=== PATIENT | male | born 1975 | race Caucasian/White ===

== ENCOUNTER 2022-12-19 02:51 | Inpatient (IN) | payer BC, SELFPAY ==
[2022-12-19] VITALS (23 sets, daily range): BP systolic 119–164; BP diastolic 59–97; PULSE 55–80; RESP 18–22; TEMP 36.4–37; O2SAT 95–99; BMI 46.7; BMI 48.2
--- NOTE | 2022-12-19 03:06 | XR_ITS ---
PROCEDURE INFORMATION: Exam: XR Chest Exam date and time: 12/19/2022 3:42 AM Age: 47 years old Clinical indication: Shortness of breath TECHNIQUE: Imaging protocol: Radiologic exam of the chest. Views: 1 view. COMPARISON: No relevant prior studies available. FINDINGS: Lungs: Pulmonary vascular prominence. Pleural spaces: Unremarkable. No pleural effusion. No pneumothorax. Heart/Mediastinum: Cardiomegaly. Bones/joints: Unremarkable. IMPRESSION: Cardiomegaly with pulmonary vascular prominence, underlying volume overload suspected.
--- NOTE | 2022-12-19 03:13 | EXP.HP ---
History of Present Illness *Admission Date: 12/19/22 *Reason for visit:: NSTEMI *History of present illness: This is a 47-year-old male with past medical history of coronary artery disease status post 10 stents with most recent being approximately 1 year ago, hypertension, hyperlipidemia who presented to [place] for complaints of midsternal chest pain. He reports midsternal chest pain started around 8 PM and radiated to his neck. He also endorses diaphoresis associated with this chest pain. He does report an element of shortness of breath over the past week that was intermittent. He denies cough or fever. He denies palpitations or lightheadedness. He does endorse to 1 pack a day smoking, denies alcohol usage. Emergency department outside hospital significant for chest pain relieved by nitroglycerin. Initial high-sensitivity troponin of 200 with increased to 1000. He was medicated with aspirin, heparin and nitroglycerin. Dr. Castillo was consulted for cardiology and he is now admitted here for further evaluation and management. At the time of admission he is chest pain-free and reports feeling improved. [facility] Disclaimer: The information contained in this section may have been updated after the patient was seen, as this information can be updated by other users. Medical History (Updated 12/19/22 @ 03:17 by KANDI Galaviz) Congestive heart failure Hemorrhoid History of gastroesophageal reflux (GERD) History of left heart catheterization (LHC) Hyperlipidemia Hypertension Skin cancer Sleep apnea Surgical History (Updated 12/19/22 @ 03:14 by Elke Garcia RN) History of angioplasty History of right heart catheterization (RHC) Family History (Updated 12/19/22 @ 03:15 by Elke Garcia RN) Other Family history of hyperlipidemia Family history of hypertension Family history of myocardial infarction Social History (Updated 12/19/22 @ 03:16 by Elke Garcia RN) Smoking Status: Current every day smoker alcohol intake: never current occupational status: employed Travel in the last 8 weeks: None Review of Systems Review of Systems Review of systems:: pertinent systems reviewed and negative unless documented below *Cardiovascular Cardiovascular: Reports chest pain and Reports chest pain with activity Meds Home Medications and Allergies Home Medications Medication Instructions Recorded Confirmed Type carvedilol 25 mg tablet 25 mg PO BID Hypertension 12/19/22 12/19/22 History furosemide 40 mg tablet 40 mg PO DAILY Heart failure 12/19/22 12/19/22 History lisinopril 20 mg tablet 20 mg PO BID Hypertension 12/19/22 12/19/22 History sertraline 50 mg tablet 50 mg PO DAILY Anxiety 12/19/22 12/19/22 History New Prescriptions to Start Prescriptions: Allergies Allergy/AdvReac Type Severity Reaction Status Date / Time No Known Drug Allergies Allergy Verified 12/19/22 03:50 Exam Data for Last 24 hours I & O for Last 24 hours: Intake & Output 12/16/22 12/17/22 12/18/22 12/19/22 23:59 23:59 23:59 23:59 Weight 151.95 kg Constitutional Constitutional: no acute distress *Routine HEENT Exam Head: Present normocephalic Eye: Present EOMI and PERRL ENT: Present mucous membranes moist *Routine Neck Exam Neck: Present supple; Absent lymphadenopathy *Routine Respiratory Exam Respiratory: Present CTA bilaterally *Routine Cardiovascular Exam Cardiovascular: Present RRR *Routine Abdominal Exam Abdominal: Present soft and normoactive bowel sounds; Absent tenderness *Routine Rectal Exam Rectal:: deferred *Routine Genitalia Exam Genitalia:: deferred *Routine Extremities Exam Extremities: Absent cyanosis, clubbing or edema *Routine Skin Exam Skin: Present warm; Absent rash *Routine Neurological Exam Neurological: Present alert and oriented X3 Assessment and Plan *Assessment and plan (1) Coronary artery disease: Status: Acute Category: Medical
[2022-12-19 04:30] LABS: Basophils # 0.1 K/mm3 (0-0.2); Basophils % 0.9 % (0.1-2.0); Eosinophils # 0.4 K/mm3 (0.0-0.4); Eosinophils % 2.3 % (0.1-12.0); Hematocrit 40.7 % (42.0-52.0); Hemoglobin 13.8 g/dL (14.1-18.0); Lymphocytes # 2.9 K/mm3 (0.7-4.5); Lymphocytes % 18.8 % (10-50); Mean Corpuscular Volume 91.1 fl (80-94); Mean Platelet Volume 8.8 fl (7.4-10.4); Monocytes # 0.9 K/mm3 (0.1-1.0); Monocytes % 5.9 % (1.7-9.3); Neutrophils # 11.1 K/mm3 (1.8-7.8); Platelet Count 241 K/mm3 (142-424); Red Blood Count 4.46 M/mm3 (4.60-6.20); Red Cell Distribution Width 13.7 % (11.5-17.5); White Blood Count 15.4 K/mm3 (4.8-10.8)
[2022-12-19 04:34] LABS: Chloride 109 mmol/L (98-107); Potassium 4.4 mmoL/L (3.5-5.1); Sodium 136 mmol/L (136-145)
[2022-12-19 04:36] LABS: Blood Urea Nitrogen 26 mg/dl (9-20); Creatinine Clearance Estimated 33 mL/min (50-200); Estimated Glomerular Filt Rate 24 ml/min (>60); GFR (African American) 29 ML/MIN (>60); MANUAL DIFFERENTIAL MANUAL DIFFERENTIAL (MANUAL DIFF)
[2022-12-19 04:37] LABS: Anion Gap 10.4 mEq/L (5-15); Calcium 8.4 mg/dl (8.4-10.2); Carbon Dioxide 21 mmol/L (22.0-30.0); Chol/HDL Ratio 8.6 (1-3.5); Cholesterol 215 mg/dl (140-200); Glucose 107 mg/dl (74-100); HDL Cholesterol 25 mg/dl (40-60); Triglycerides 232 mg/dl (30-150); VLDL Cholesterol 46 mg/dL (0-40)
[2022-12-19 04:47] LABS: NT Pro Brain Natriuretic Pep. 725 pg/mL (0-125)
[2022-12-19 04:48] LABS: Direct LDL Cholesterol 154.61 mg/dL (100-129)
[2022-12-19 04:55] LABS: Troponin I 1.83 ng/ml (0.00-0.034)
[2022-12-19 04:57] LABS: Free T4 (Free Thyroxine) 1.21 ng/dl (0.78-2.19)
[2022-12-19 05:08] LABS: Thyroid Stimulating Hormone 1.11 uIU/mL (0.465-4.68)
--- NOTE | 2022-12-19 05:12 | PC.NURSE ---
made katarina hicks aware of critical troponin 1.83
--- NOTE | 2022-12-19 05:42 | PC.NURSE ---
A&Ox4. Room air. NPO. Patient is receiving heparin gtt at 20 ml/hr. Tele NSR. Denies any chest pain, n/v, sob. Family at bedside.
[2022-12-19 05:56] LABS: PTT Heparin (inpatient only) 25.9 Seconds (23.6-34.0)
[2022-12-19 06:31] LABS: Eosinophils % 1 % (0-3); Lymphocytes % 13 % (10-50); Monocytes % 2 % (2-9); Neutrophils % 84 % (42-76); Platelet Estimate Normal; RBC Morphology Normal; Total Cells Counted 100
[2022-12-19 06:43] LABS: PTT Heparin (inpatient only) 26.5 Seconds (23.6-34.0)
--- NOTE | 2022-12-19 07:02 | PC.NURSE ---
[facility] center called at 0036 for pt transfer. Info taken and reported to Jaz DoradoHospitalist. Pt assigned to bed 201 at 0059 and report number given to transfer center.
[2022-12-19 07:26] LABS: Hemoglobin A1C 6.1 % (4.0-6.0)
[2022-12-19 07:38] LABS: Troponin I 1.79 ng/ml (0.00-0.034)
--- NOTE | 2022-12-19 08:00 | ECG_ITS ---
APPROVED REPORT Exam: Resting ECG HR:71 bpm ECG Measurements Heart Rate 71 AXES WI 205 P 51 QRSd 113 QRS 39 QT 436 T 68 QTc 459 Conclusion SINUS RHYTHM INCOMPLETE RIGHT BUNDLE BRANCH BLOCK [90+ ms QRS DURATION, TERMINAL R IN V1/V2, 40+ ms S IN I/aVL/V4/V5/V6] NONSPECIFIC T-WAVE ABNORMALITY BORDERLINE ECG UNCONFIRMED REPORT Electronically signed by : Humberto Guy MD 12/21/2022 03:10:02
[2022-12-19 08:44] LABS: Coronavirus 19, PCR Not Detected (NotDetected); Influenza A, PCR Not Detected (NotDetected); Influenza B, PCR Not Detected (NotDetected)
--- NOTE | 2022-12-19 08:56 | P.CONPHA_ITS ---
[facility] Pharmacy Heparin Dosing Demographic Data Admission date:: 12/19/22 Date: 12/19/22 Time: 08:56 Allergies Allergy/AdvReac Type Severity Reaction Status Date / Time No Known Drug Allergies Allergy Verified 12/19/22 03:50 Height: 1.8 m Weight: 156 kg Indication Medication therapy:: Heparin Current Active Problems (Updated 12/19/22 @ 03:17 by KANDI Galaviz) Acute kidney injury superimposed on CKD (Acute) Hyperlipidemia (Acute) Hypertension (Acute) Coronary artery disease (Acute) CVA?: No Bleeding problem?: No Kidney disease?: No UT?: No Desired PTT range:: 50-75 seconds Labs Anticoagulation Lab Results:: 12/19/22 03:50 Hgb 13.8 L Hct 40.7 L Plt Count 241 Monitoring Dose Monitor 1: Date: 12/19/22 Time: 05:13 PTT Result:: 25.9 Infusion Rate:: HEPARIN 20 ML/HR (1000 UNITS/HR) Dose Monitor 2: Date: 11/21/22 Time: 06:25 PTT Result:: 26.5 Infusion Rate:: HEPARIN 32 ML/HR (1600 UNITS/HR) 4000 UNIT BOLUS Core Measures Is INR > or = 2 at discharge?: No Most Recent Labs:: Laboratory Results - last 24 hr 12/19/22 03:50: Sodium 136, Potassium 4.4, Chloride 109 H, Carbon Dioxide 21 L, Anion Gap 10.4, BUN 26 H, Creatinine 2.80 H, Estimated Creat Clear 33, Estimated GFR 24 L, Est GFR ( Amer) 29 L, Glucose 107 H, Calcium 8.4, NT-Pro-B Natriuret Pep 725 H, Triglycerides 232 H, Cholesterol 215 H, LDL Cholesterol Direct 154.61 H, VLDL Cholesterol 46 H, HDL Cholesterol 25 L, Cholesterol/HDL Ratio 8.6 H, TSH 1.11 12/19/22 03:50: Free T4 1.21 12/19/22 03:50: WBC 15.4 H, RBC 4.46 L, Hgb 13.8 L, Hct 40.7 L, MCV 91.1, MCH 31.0, MCHC 34.0, RDW 13.7, Plt Count 241, MPV 8.8, Neut % (Auto) 72.0, Lymph % (Auto) 18.8, Kendall % (Auto) 5.9, Eos % (Auto) 2.3, Baso % (Auto) 0.9, Neut # (Auto) 11.1 H, Lymph # (Auto) 2.9, Kendall # (Auto) 0.9, Eos # (Auto) 0.4, Baso # (Auto) 0.1, Total Counted 100, Neutrophils % (Manual) 84 H, Lymphocytes % (Manual) 13, Monocytes % (Manual) 2, Eosinophils % (Manual) 1, Platelet Estimate Normal, RBC Morphology Normal 12/19/22 03:50: Hemoglobin A1c 6.1 H 12/19/22 03:50: Troponin I 1.83 H 12/19/22 05:13: APTT 25.9 12/19/22 06:25: APTT 26.5 12/19/22 06:30: Troponin I 1.79 H If INR was < than 2.0 why was therapy stopped?: STENTED Were Heparin and Warfarin started on the same day?: No If not, why?: STENTED, HEPARIN STOPPED.
[2022-12-19 09:42] LABS: Troponin I 1.88 ng/ml (0.00-0.034)
--- NOTE | 2022-12-19 09:44 | PC.NURSE ---
notified of critical Troponin
--- NOTE | 2022-12-19 09:48 | IR_ITS ---
APPROVED REPORT Patient Location: Inpatient Corrections Specialist: LISSETTE Segundo RT (R) PROCEDURES Left heart catheterization Selective coronary angiogram Drug-eluting stent deployment to the left main artery Intravascular ultrasound to the LAD and left main artery Drug-eluting stent deployment to the ostial LAD INDICATION Acute non-ST elevation myocardial infarction, Coronary artery disease, Nonoperative candidate and current condition, Unprotected left main artery stenting Informed consent was obtained prior to the procedure. COMPLICATIONS None Estimated Blood Loss: Less than 10 mls TECHNIQUE One percent lidocaine used to anesthetize the right anterior aspect of the wrist. The right radial artery was accessed via the Seldinger technique. A 6 Setswana sheath was placed in the right radial artery. 150 mg magnesium sulfate, 800 mcg of nitroglycerin, 1mg Lidocaine and 5000 U Heparin were given through the arterial sheath. The papa catheter was also used to perform left heart catheterization, and selective coronary angiography. At the end of the diagnostic angiogram therapeutic heparin was administered and I broke scrub and discussed the case with the family. I met with patient's and the patient's mother and explained that a critical blockage was identified in the distal left main artery while the right coronary artery was ostially occluded. Patient had a creatinine of 2.8 and was currently on Brilinta. An emergency procedure was performed today due to patient's ongoing chest pain. Because of the distal left main stenosis and patient's ongoing chest pain I felt bypass surgery was not a viable option. This is a large gentleman and his size alone would make bypass surgery a risky endeavor not to mention the fact he is on dual antiplatelet therapy which would virtually prevent him from having any open surgical procedure for the next several days. To complicate matters his creatinine was 2.8 and even if he did proceed with surgery there is almost certainty he would be on dialysis if he were to survive surgery. Considering all of the events were stacked against him I did recommend proceeding with percutaneous stenting while still giving the family an option for transfer. There was a consensus agreement to proceed with stenting. I return to the [employer] Trimmer and therapeutic heparin was administered giving a therapeutic ACT and a JL 3 guide catheter was placed in the left main artery followed by Choice PT extra-support wire being placed on the LAD. A 4 mm x 18 mm resolute Pb stent was deployed at 24 tori in the distal left main artery extending into the LAD. Excellent angiographic results were obtained. Following this intravascular ultrasound probe was advanced which demonstrated the ostial LAD was appropriately sized but the left main artery was still undersized. Because of this a 5 mm x 12 mm resolute Pb stent was placed proximal to the first stent yet still overlapping it entirely within the left main artery and deployed at 24 tori. STEVEN-3 flow was present before and after the procedure. At the end of the procedure the apparatus was removed the sheath was removed good hemostasis was achieved using TR banding patient was transferred to the postop holding in stable condition ANGIOGRAPHIC RESULTS The left main artery Has a distal eccentric 80 to 90% stenosis The left anterior descending artery Has proximal 20% followed by additional 30% stenosis with stents in the mid to distal segment which are widely patent The circumflex artery Is likely dominant and gives rise to a large ramus intermedius which has diffuse 10 to 20% stenoses while the circumflex artery itself has a stent in the distal segment i
--- NOTE | 2022-12-19 09:56 | PC.NURSE ---
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
--- NOTE | 2022-12-19 11:36 | PC.NURSE ---
pt is drowsy but awakens easily. VS stable. Pt denies any pain @ all. no c/o pressure cath site is intact
--- NOTE | 2022-12-19 12:38 | XR_ITS ---
PROCEDURE INFORMATION: Exam: XR Chest Exam date and time: 12/19/2022 12:54 PM Age: 47 years old Clinical indication: Shortness of breath; Prior surgery; Surgery date: Post-operative (0-2 days); Surgery type: Had a heart cath done this morning; Additional info: SOA TECHNIQUE: Imaging protocol: Radiologic exam of the chest. Views: 1 view. COMPARISON: CR XR CHEST PORTABLE 12/19/2022 3:42 AM FINDINGS: Lungs: Lung volumes are decreased likely due to body habitus. Lung murray are aerated and clear without infiltrates or overt CHF. Pleural spaces: Unremarkable. No pleural effusion. No pneumothorax. Heart/Mediastinum: Cardiac silhouette is moderately enlarged. There is pulmonary vascular redistribution indicating elevated central venous pressure. Bones/joints: Unremarkable. IMPRESSION: Cardiomegaly with elevated central venous pressure otherwise negative chest.
--- NOTE | 2022-12-19 12:45 | PC.NURSE ---
pt c/o SOA. saturation is 97% on RA. Lungs are CTA. pulses are equal and strong. Pt is alert and appropriate. MD notified. New orders received
--- NOTE | 2022-12-19 12:56 | ECG_ITS ---
APPROVED REPORT Exam: Resting ECG HR:57 bpm ECG Measurements Heart Rate 57 AXES ND 198 P 16 QRSd 120 QRS 35 QT 470 T 62 QTc 464 Conclusion SINUS BRADYCARDIA MODERATE INTRAVENTRICULAR CONDUCTION DELAY [110+ ms QRS DURATION] MINIMAL ST DEPRESSION [0.025+ mV ST DEPRESSION] PROLONGED QT INTERVAL ABNORMAL ECG UNCONFIRMED REPORT Electronically signed by : Humberto Guy MD 12/21/2022 03:07:58
--- NOTE | 2022-12-19 14:14 | PC.NURSE ---
pt reports increased anxiety. SOA has lessened. Saturation is 99% on RA. notified MD of pt anxiety. new orders received
--- NOTE | 2022-12-19 18:52 | PC.NURSE ---
MD aware of pts BP. nno
--- NOTE | 2022-12-19 23:12 | PC.NURSE ---
Courtesy Round Patient sitting up in bed with at bedside. Patient voiced no needs at this time beside getting something for congestion, nurse notified . Trash and linens emptied .Refilled patients water pitcher with ice water. Patients call light within reach .
[2022-12-20] VITALS: BP 147/95; PULSE 70; PULSE 71; RESP 20; TEMP 36.7; O2SAT 94
[2022-12-20 03:56] VITALS: BMI 47.3
[2022-12-20 03:57] VITALS: BP 141/85; PULSE 66; RESP 20; TEMP 36.9; O2SAT 98
--- NOTE | 2022-12-20 06:00 | CA_ITS ---
APPROVED REPORT EXAM: Comprehensive 2D, Doppler, and color-flow Echocardiogram Senior Front End Web Developer: Fariha Chavarria, RT(R) Ht: 5 ft 10 in Wt: 338lbs BSA: 2.61 BP: 124/68 mmHg Indications: NSTEMI 2D Dimensions LVOT 2.32 cm (M/F) 1.5-2.5 M-Mode Dimensions RVDd 2.63 cm (0.9-2.6) LA Diam 4.22 cm (1.9-4.0) LVDd 6.74 cm (3.5-5.7) Ao Diam 3.15 cm (2.0-3.7) LVDs 5.51 cm (3.5-5.7) IVSd 0.97 cm (0.6-1.1) PWd 0.89 cm (0.6-1.1) EF (Teich) 36.90% FS 18.20% EDV (Teich) 234.50 mL ESV (Teich) 148.00 mL LV Diastology E Decel Time 210.00 (160-240 msec) E/A Ratio 1.1 MED E' 4.00 (< 7 cm/sec) E'/MED E' Ratio 19.20 (>14) LAT E' 4.50 (<10 cm/sec) E/LAT E' Ratio 17.07 (>14) Aortic Valve LVOT Max 87.00 (70-110 cm/s) LVOT VTI 18.31 cm AoV Peak Jone. 120.00 (50-130 cm/s) AO Peak GR. 5.80 mmHg AO Mean GR. 2.90 (<5 mmHg) AO VTI 19.70 (18-25 cm) EDVIN (VTI) 3.93 (2.5-4.5 cm2) Mitral Valve MV E Max Jone. 77.00 (40-130 cm/s) MV A Velocity 73.00 (40-130 cm/s) E/A Ratio 1.06 MV Decel. Time 210.00 (160-240 ms) MV PHT 62.00 ms Left Ventricle Left atrium is mildly enlarged, left ventricle is normal size, estimated ejection fraction 45%, there is moderate hypokinesis involving the distal septum and apical wall. Diastolic parameters are inconclusive. Right Ventricle Right atrium and right ventricular normal size and contractility. Aortic Valve Aortic valve is minimally thickened and calcified without aortic stenosis or aortic insufficiency. Mitral Valve Mitral valve is grossly normal, there is trace mitral regurgitation. Tricuspid Valve Tricuspid valve grossly normal, there is trace tricuspid regurgitation. Tricuspid regurgitation jet velocity is inadequate for calculation of the right ventricular systolic pressure. Pulmonic Valve Pulmonic valve is poorly visualized. Great Vessels Aortic root is normal size. Inferior vena cava is poorly visualized. Pericardium No significant pericardial effusion noted. Conclusion 1. Normal left ventricular size, estimated ejection fraction 45% with segmental wall motion abnormality described above, diastolic parameters are inconclusive. 2. Trace mitral and tricuspid regurgitation. 3. No significant pericardial effusion noted. 4. Inferior vena cava is poorly visualized. Electronically signed by : Eugene Shannon MD 12/20/2022 11:56:39
[2022-12-20 07:26] LABS: Basophils # 0.1 K/mm3 (0-0.2); Basophils % 0.7 % (0.1-2.0); Eosinophils # 0.3 K/mm3 (0.0-0.4); Eosinophils % 1.9 % (0.1-12.0); Hematocrit 45.2 % (42.0-52.0); Hemoglobin 14.6 g/dL (14.1-18.0); Lymphocytes # 2.1 K/mm3 (0.7-4.5); Mean Corpuscular HGB Conc 32.3 g/dL (31.8-35.4); Mean Corpuscular Hemoglobin 29.5 pg (27.0-31.2); Mean Corpuscular Volume 91.1 fl (80-94); Monocytes # 0.9 K/mm3 (0.1-1.0); Monocytes % 5.4 % (1.7-9.3); Neutrophils # 12.5 K/mm3 (1.8-7.8); Platelet Count 275 K/mm3 (142-424); Red Blood Count 4.96 M/mm3 (4.60-6.20); Red Cell Distribution Width 13.7 % (11.5-17.5); White Blood Count 15.8 K/mm3 (4.8-10.8)
[2022-12-20 07:35] LABS: MANUAL DIFFERENTIAL MANUAL DIFFERENTIAL (MANUAL DIFF)
[2022-12-20 07:36] LABS: Anion Gap 12.3 mEq/L (5-15); Blood Urea Nitrogen 28 mg/dl (9-20); Calcium 8.5 mg/dl (8.4-10.2); Carbon Dioxide 24 mmol/L (22.0-30.0); Chloride 105 mmol/L (98-107); Creatinine Clearance Estimated 31 mL/min (50-200); Estimated Glomerular Filt Rate 22 ml/min (>60); GFR (African American) 27 ML/MIN (>60); Glucose 111 mg/dl (74-100); Potassium 4.3 mmoL/L (3.5-5.1); Sodium 137 mmol/L (136-145)
[2022-12-20 07:36] LABS: CATHL Activated Clotting Time 224 SEC (74-125)
[2022-12-20 07:37] LABS: CATHL Activated Clotting Time 132 SEC (74-125)
[2022-12-20 07:40] LABS: Magnesium 1.9 mg/dl (1.6-2.3)
[2022-12-20 07:59] VITALS: BP 162/104; PULSE 70; RESP 21; TEMP 36.6; O2SAT 97
[2022-12-20 08:00] VITALS: O2SAT 97
[2022-12-20 08:11] LABS: Lymphocytes % 13 % (10-50); Monocytes % 6 % (2-9); Neutrophils % 81 % (42-76); Platelet Estimate Normal; RBC Morphology Normal; Total Cells Counted 100
[2022-12-20 11:37] VITALS: BP 138/94; PULSE 64; RESP 19; TEMP 36.6; O2SAT 94
[2022-12-20 12:00] VITALS: PULSE 68
--- NOTE | 2022-12-20 12:45 | EXP.DC.SUM ---
General Admission date:: 12/19/22 Discharge date: 12/20/22 HPI HPI HPI: This is a 47-year-old male with past medical history of coronary artery disease status post 10 stents with most recent being approximately 1 year ago, hypertension, hyperlipidemia who presented to [place] for complaints of midsternal chest pain. He reports midsternal chest pain started around 8 PM and radiated to his neck. He also endorses diaphoresis associated with this chest pain. He does report an element of shortness of breath over the past week that was intermittent. He denies cough or fever. He denies palpitations or lightheadedness. He does endorse to 1 pack a day smoking, denies alcohol usage. Emergency department outside hospital significant for chest pain relieved by nitroglycerin. Initial high-sensitivity troponin of 200 with increased to 1000. He was medicated with aspirin, heparin and nitroglycerin. Dr. Castillo was consulted for cardiology and he is now admitted here for further evaluation and management. At the time of admission he is chest pain-free and reports feeling improved. Hospital Course Hospital Course Hospital Course: 47-year-old male with history of CKD, hypertension, morbid obesity, CAD, continued tobacco use. Initially presented to outside hospital. Found to have elevation in high-sensitivity troponin. Significant coronary artery disease with history of 10 previous stents. Patient transferred to [facility] for further management and cardiology consult. Problems addressed as follows: Type I NSTEMI High-sensitivity troponin initially 200, elevated to 1000. Patient transferred for further management. Known setting of coronary artery disease. Trended troponins at our institution. Started on nitroglycerin drip and heparin drip on admission. Evaded to 1.8 on admission, repeat 1.7. EKG showed no ST elevations. Continued with medical management pending cardiology consult. Given patient's significant history and risk factors, patient taken to [employer]. Successful stenting of ostial proximal mid distal left main artery extending into the proximal LAD. Stenosis reduced to 0%. Continue with dual antiplatelet therapy, beta-taylor, statin. Echo obtained during admission, ejection fraction 45%. No indication for LifeVest at this time. Patient medically stable for discharge. Close follow-up with his primary hardening machine operator in [place], Dr. Kim. Recommend follow-up in a week for repeat labs and monitoring. Of note, screening A1c obtained, 6.1 at this time. Patient is prediabetic. Recommend further management as an outpatient. Hypertension Hyperlipidemia -Continue blood pressure regimen with carvedilol 25 mg twice daily. No SNEHAL or ARB at this time in the setting of CKD. High-dose statin continued. LDL goal less than 55. CKD -Baseline creatinine 2.2-2.4. Elevated slightly during admission to 3 on day of discharge. Still making adequate urine. Recommend follow-up in a week with his primary hardening machine operator for further evaluation and consideration of eval for renal artery stenosis. This has reportedly previously been discussed with his primary hardening machine operator.? Tobacco Abuse: complicates his continued CAD and risk for further occlusions. counseled on need for cessation. Exam Data for Last 24 hours Vital signs and Labs for Last 24 Hours: Temp Pulse Resp BP Pulse Ox 97.9 F 64 19 138/94 H 94 L 12/20/22 11:37 12/20/22 11:37 12/20/22 11:37 12/20/22 11:37 12/20/22 11:37 Laboratory Results - last 24 hr 12/19/22 10:16: Activated Clotting Time 132 H 12/19/22 10:46: Activated Clotting Time 224 H* D 12/20/22 06:48: WBC 15.8 H, RBC 4.96, Hgb 14.6, Hct 45.2, MCV 91.1, MCH 29.5, MCHC 32.3, RDW 13.7, Plt Count 275, MPV 9.0, Neut % (Auto) 79.0, Lymph % (Auto) 13.0, Saunders % (Auto) 5.4, Eos % (Auto) 1.9, Baso % (Auto) 0.7, Neut # (Auto) 12.5 H, Lymph # (Auto) 2.1, Saunders # (Auto) 0.9, Eos # (Auto) 0.3, Baso # (Auto) 0.1, Total Counted 100, Neutrophil
--- NOTE | 2022-12-20 12:50 | EXP.CARD.CON ---
History of Present Illness History of Present Illness Consult date: 12/20/22 Requesting physician: Bharat Castillo Consult reason: chest pain Chief complaint: Nstemi History of present illness: Hospitalist note: This is a 47-year-old male with past medical history of coronary artery disease status post 10 stents with most recent being approximately 1 year ago, hypertension, hyperlipidemia who presented to [place] for complaints of midsternal chest pain.? He reports midsternal chest pain started around 8 PM and radiated to his neck.? He also endorses diaphoresis associated with this chest pain.? He does report an element of shortness of breath over the past week that was intermittent.? He denies cough or fever.? He denies palpitations or lightheadedness.? He does endorse to 1 pack a day smoking, denies alcohol usage. Emergency department outside hospital significant for chest pain relieved by nitroglycerin.? Initial high-sensitivity troponin of 200 with increased to 1000.? He was medicated with aspirin, heparin and nitroglycerin.? Dr. Castillo was consulted for cardiology and he is now admitted here for further evaluation and management.? At the time of admission he is chest pain-free and reports feeling improved. Cards Note: s/p LHC-critical distal left main disease noted with successful stenting of the ostial proximal mid distal left main artery extending into the proximal LAD reducing critical disease to 0%. 47 year old white male with previous hx of CKD, htn, obesity, and CAD is currently admitted for NSTEMI and is post LHC with stenting. Official Echo read shows and EF of 45. Creatinine is 3.0 with a baseline of 2.2-2.4. Patient denies any complaints at this time. [facility] Disclaimer: The information contained in this section may have been updated after the patient was seen, as this information can be updated by other users. Medical History (Updated 12/20/22 @ 12:49 by Pollo Larose MD) Congestive heart failure Hemorrhoid History of gastroesophageal reflux (GERD) History of left heart catheterization (LHC) Hyperlipidemia Hypertension Skin cancer Sleep apnea Surgical History (Updated 12/19/22 @ 03:14 by Elke Garcia, NADIA) History of angioplasty History of right heart catheterization (RHC) Family History (Updated 12/19/22 @ 03:15 by Elke Garcia RN) Other Family history of hyperlipidemia Family history of hypertension Family history of myocardial infarction Social History (Updated 12/19/22 @ 03:16 by Elke Garcia RN) Smoking Status: Current every day smoker alcohol intake: never current occupational status: employed Travel in the last 8 weeks: None Review of Systems Review of Systems Review of systems:: pertinent systems reviewed and negative unless documented below Exam Data for Last 24 hours Vital signs and Labs for Last 24 Hours: Temp Pulse Resp BP Pulse Ox 97.9 F 64 19 138/94 H 94 L 12/20/22 11:37 12/20/22 11:37 12/20/22 11:37 12/20/22 11:37 12/20/22 11:37 Laboratory Results - last 24 hr 12/19/22 10:16: Activated Clotting Time 132 H 12/19/22 10:46: Activated Clotting Time 224 H* D 12/20/22 06:48: WBC 15.8 H, RBC 4.96, Hgb 14.6, Hct 45.2, MCV 91.1, MCH 29.5, MCHC 32.3, RDW 13.7, Plt Count 275, MPV 9.0, Neut % (Auto) 79.0, Lymph % (Auto) 13.0, [place] % (Auto) 5.4, Eos % (Auto) 1.9, Baso % (Auto) 0.7, Neut # (Auto) 12.5 H, Lymph # (Auto) 2.1, [place] # (Auto) 0.9, Eos # (Auto) 0.3, Baso # (Auto) 0.1, Total Counted 100, Neutrophils % (Manual) 81 H, Lymphocytes % (Manual) 13, Monocytes % (Manual) 6, Platelet Estimate Normal, RBC Morphology Normal 12/20/22 06:48: Sodium 137, Potassium 4.3, Chloride 105, Carbon Dioxide 24, Anion Gap 12.3, BUN 28 H, Creatinine 3.00 H, Estimated Creat Clear 31, Estimated GFR 22 L, Est GFR ( Amer) 27 L, Glucose 111 H, Calcium 8.5 12/20/22 06:48: Phosphorus 5.0 H, Magnesium 1.9 I & O for Last 24 hours: Intake & Output 12/17
--- NOTE | 2022-12-23 15:11 | CARE MANAGER ---
Attempted x2 to contacted patient related to hospital discharge. Left VM message. NADIA Lemus
== END 2022-12-20 13:43 | disposition home or self-care (01) | DRG 247 ==
PROVIDERS: Internal Medicine; Nurse Practitioner Acute Care; Admitting Provider Student in an Organized Health Care Education/Training Program; PCP Family Medicine; Visit Provider Student in an Organized Health Care Education/Training Program
PROC: 027034Z Dilation of Coronary Artery, One Artery with Drug-eluting Intraluminal Device, Percutaneous Approach (ICD-10-PCS; principal; 2022-12-19 09:45)
DX: N17.9 Acute kidney failure, unspecified (principal); I21.4 Non-ST elevation (NSTEMI) myocardial infarction; Z68.42 Body mass index [BMI] 45.0-49.9, adult; I25.10 Atherosclerotic heart disease of native coronary artery without angina pectoris; Z95.5 Presence of coronary angioplasty implant and graft; I11.0 Hypertensive heart disease with heart failure; I50.9 Heart failure, unspecified; E78.5 Hyperlipidemia, unspecified; Z85.828 Personal history of other malignant neoplasm of skin; F17.200 Nicotine dependence, unspecified, uncomplicated; E66.9 Obesity, unspecified; K21.9 Gastro-esophageal reflux disease without esophagitis
CPT/HCPCS: 36415; 71045; 80048; 80061; 83036; 83735; 83880; 84100; 84439; 84443; 84484; 85007; 85025; 85347; 85730; 92941; 92978; 93005; 93306; 93458; 99152; 99153; C1725; C1760; C1769; C1876; C9606; C9803; J1644; Q9967; U0003; U0005